=== PATIENT | female | born 1975 | race Caucasian/White ===

== ENCOUNTER 2016-05-26 14:40 | Emergency (ER) | payer OTHER ==
--- NOTE | 2016-05-27 02:34 | ED ORDER SUMMARY ---
..... Patient: KACIE MIJARES OrderSheet [facility] VisitID: [id number] [place] [address] 41y, F Registration Date/Time: 05/26/2016 ORDER SHEET Weight: 47.6 kg (stated) Allergies: None GENERAL ORDERS: UA-Culture if indicated Urgent (15:04 05/26/2016 JBoardley R.N. per protocol) (15:06 KHoerner) Urine Drug Screen Urgent (15:04 05/26/2016 JBoardley R.N. per protocol) (15:06 KHoerner) Urine Urgent (15:04 05/26/2016 JBoardley R.N. per protocol) (15:06 KHoerner) CBC w Diff Urgent (15:13 05/26/2016 RMarsden R.N. per protocol) (Ack 15:14 RMarsden R.N.) (Ack 15:17 KHoerner) (15:23 JBoardley R.N.) CMP Urgent (15:13 05/26/2016 RMarsden R.N. per protocol) (Ack 15:14 RMarsden R.N.) (Ack 15:17 KHoerner) (15:23 JBoardley R.N.) Amylase Urgent (15:13 05/26/2016 RMarsden R.N. per protocol) (Ack 15:14 RMarsden R.N.) (Ack 15:17 KHoerner) (15:23 JBoardley R.N.) Lipase Urgent (15:13 05/26/2016 RMarsden R.N. per protocol) (Ack 15:14 RMarsden R.N.) (Ack 15:17 KHoerner) (15:23 JBoardley R.N.) MEDICATION ORDERS: IV FLUIDS: IV NS with Normal Saline 1 Liter: initial bolus none -, then 1000 mL/hr for X1 (NOW); Routine (15:11 05/26/2016 RMarsden R.N. per protocol) (15:15 RMarsden R.N.) ORDER SHEET NOTES: Reason for Study: Abdominal Pain [Electronically signed by Kai Torres R.N. (16:05/26/2016)] [Electronically signed by Sal Blood MD (17:36 05/26/2016)] [Electronically locked/signed by Kai Torres R.N. (16:05/26/2016)]
--- NOTE | 2016-05-27 02:34 | ED NURSING NOTES ---
Clinical Report - Nurses [facility] [address] [place] [address] 05/26/2016 14:42 Patient: KACIE MIJARES TRIAGE Triage time 14:52. Acuity: LEVEL 3. Chief Complaint: ABDOMINAL PAIN. 15:02 05/26/16. Alert. No acute distress. SEPSIS SCREEN: Sepsis Screen. Negative (no infection suspected/documented). ZAINA COMA SCORE: [place] Coma Scale: 15- eyes open spontaneously (4); best verbal response- oriented x 4 (5); best motor response- obeys commands (6). --15:02 Joan Irving R.N. 14:51 05/26/16. BP: 119/77. HR: 112. RR: 16. O2 saturation: 98%. Temp: 98.5 F. --15:02 Joan Irving R.N. Weight: 47.6 kg stated. Height/Length: 63 inches Per Patient. BMI: 18.6. --15:02 Joan Irving R.N. Medications None. --14:55 Joan Irving R.N. Allergies None. --14:55 Joan Irving R.N. History Arrived by private vehicle. Historian: patient. Primary physician (Dr. Riley). Primary care physician not notified of patient's arrival. Onset. (pt states pain during her menstrual period has worsened over the past year and has been especially bad this month.). ( pt states "this feels like endometriosis".). She has had nausea, vomiting and diarrhea. Treatment MEDICAL DIRECTOR OF HOSPICE: Took ibuprofen. (heating pad). PAST MEDICAL HX: Immunizations: up-to-date. Last normal menstrual period- current. Denies current . SOCIAL HX: Light tobacco smoker (cigarette)- less than 1/2 a pack per day. History of drug use: heroin, methamphetamines. Recently used drugs today. No alcohol use. FALL RISK ASSESSMENT: Fall risk assessment completed. No fall risk identified. NUTRITIONAL RISK ASSESSMENT: The nutritional risk assessment revealed no deficiencies. FUNCTIONAL ASSESSMENT: Functional assessment: no impairments noted. LEARNING NEEDS ASSESSMENT: The learning needs assessment revealed no barriers. SKIN INTEGRITY ASSESSMENT: Skin integrity risk assessment completed. No skin integrity risk identified. --15:02 Joan Irving R.N. PROBLEMS: Endometriosis. Cellulitis. --14:55 Joan Irving R.N. ADDITIONAL SURGERIES: . Laparoscopy. --14:55 Joan Irving R.N. Interventions ID band on patient. To treatment room. --15: Joan Irving R.N. PHYSICAL ASSESSMENT 15:05/26/16. Ambulatory to room. GENERAL / NEURO / PSYCH: Alert. Oriented X 4. Appears in no acute distress. HEENT: Mucous membranes are pink. RESPIRATORY: Respirations not labored. Breath sounds within normal limits. CVS: Capillary refill less than 2 seconds. GI / : Abdomen soft and nontender. Bowel sounds within normal limits. SKIN: Skin is warm and dry. --15:05 Joan Irving R.N. NURSING PROGRESS NOTES 15:05/26/2016 Site #1 started via IV in the right forearm with an 22g angiocath; one attempt. Blood drawn: rainbow set. Labeled in the presence of the patient and sent to the lab. Saline lock flushed with 5 mL saline. --15:15 Joan Irving R.N. 15:05/26/2016 Started bag #1 1000 mL IV Fluids IV NS (Saline); bolus of 1000 mL over 1 hour(s) via site #1. Allergies verified and confirmed 5 rights. IV patency established. IV site checked: no pain, redness, or swelling. IV flushed thoroughly pre- and post-medication administration. --15:15 Joan Irving R.N. 15:05/26/16. The plan of care for this patient has been created. Patient gowned. Head of bed elevated. Reassurance given. --15:23 Kai Torres R.N. 15:05/26/16. Two patient identifiers checked. Call light placed in reach. Side rails up x 2. Bed placed in lowest position. Brakes of bed on. Brakes of chair on. --15:23 Kai Torres R.N. 15:24 05/26/16. Patient ready for evaluation- chart flagged and notification provided. --15:24 Kai Torres R.N. 15:57 05/26/16. BP: 111/69. HR: 114. RR: 14. O2 saturation: 100%. Temp: deferred. Pain level now: 0/10. --15:59 Joan Irving R.N. 15:59 05/26/16. --15:59 Joan Irving R.N. 16:21 05/26/2016 IV Fluids IV NS Discontinued: bag #1 infused upon discharge. Total amount infused: 1000 mL. IV patency established. IV site checked: no pain, redness, or swelling. IV flushed thoroughly. --16:21 Kai Torres R.N. DISPOSITION / DISCHARGE 16:20 05/26/2016 Site #1 removed upon discharge. Catheter intact. --16:20 Kai Torres R.N. 16:21 05/26/16. Condition at departure: improved. The goals identified in the patient's plan of care were met. No learning barriers present. Discharge instructions provided and reviewed with the patient. Reviewed warnings. Reviewed medication(s). Treatments reviewed. Patient verbalized understanding. Written instructions provided in Romansh. The patient was discharged by the physician. She was discharged home and accompanied by manager clinical pharmacy. She left the Emergency Department ambulatory and via private vehicle. Laser Print Operator driving. FALL RISK ASSESSMENT: Fall risk assessment completed. No fall risk identified. --16:21 Kai Torres R.N. 16:20 05/26/16. BP: 105/63. HR: 89. RR: 14. O2 saturation: 99% on room air. Temp: 98.1 F (oral). --16:21 Kai Torres R.N. 16:21 05/26/16. Departure time: 16:21. --16:21 Kai Torres R.N. Locked/Released at 05/26/2016 16:23 by Kai Torres R.N.
--- NOTE | 2016-05-27 02:34 | ED CLINICAL REPORT ---
Clinical Report - Physicians/Mid Levels [facility] [address] [place] [address] 05/26/2016 14:42 Patient: KACIE MIJARES Time Seen: 14:49 May 26 2016. Arrived- By private vehicle. Historian- patient. CPT: ER phys charges level 3 (#043074). HISTORY OF PRESENT ILLNESS Chief Complaint: ABDOMINAL PAIN. It is described as "pain" and it is described as located in the right pelvis and left pelvis and in the pelvic area. This started about 3 days CARDIAC NURSE and is still present but is improving. (almost gone). At its maximum, severity described as severe. When seen in the E.D., it was almost gone. Modifying factors- worsened by movement. Relieved by rest. No nausea, loss of appetite, vomiting or diarrhea. Similar symptoms previously: Several times, as bad. Seen in office. Diagnosis: (Endometriosis). Recent medical care: Not recently seen/assessed. REVIEW OF SYSTEMS No constipation, black stools, hematemesis, difficulty with urination or pain with urination. No urinary frequency, fever, sore throat, chest pain or difficulty breathing. No joint pain, skin rash, chills or back pain. Denies current . All systems otherwise negative, except as recorded above. PAST HISTORY Endometriosis. Cellulitis. - ADDITIONAL SURGERIES: . Laparoscopy. Medications: None. Allergies: None. SOCIAL HISTORY Heavy tobacco smoker (cigarette)- less than 1 pack per day. History of drug use: heroin, methamphetamines. No alcohol use. ADDITIONAL NOTES The nursing notes have been reviewed. PHYSICAL EXAM Vital Signs: 05/26/2016 14:52 BP: 119/77. HR: 112. RR: 16. O2 saturation: 98%. Temp: 98.5 F. Appearance: Alert. No acute distress. Eyes: Eyes normal inspection. ENT: Pharynx normal. Neck: Normal inspection. CVS: Normal heart rate and rhythm. Respiratory: No respiratory distress. Abdomen: Soft and nontender. Bowel sounds normal. Back: Normal inspection. No CVA tenderness. Skin: Skin warm. Normal skin color. No rash. Neuro: Oriented X 3. No motor deficit. No sensory deficit. Reflexes normal. PROGRESS AND PROCEDURES Course of Care: Pt episode of pain is almost resolved as it usually does on day 3 of menses. She needs work note to go back to work and is primarily why she is here. Patient/family counseled. Disposition: Discharged. Condition: stable. CLINICAL IMPRESSION Recurrent endometriosis with severe pelvic pain. INSTRUCTIONS Return to school tomorrow, in one day. Do not go to school for three days until better (Tuesday thru Tuesday.). Warnings: Further evaluation is necessary. Follow-up: Follow up with a plastics worker in three weeks. Call for the next available appointment. Understanding of the discharge instructions verbalized by patient. (Electronically signed by Sal Blood MD 05/26/2016 17:36)
--- NOTE | 2016-05-27 02:34 | ED NURSING NOTES ---
Clinical Report - Nurses [facility] [address] [place] [address] 05/26/2016 14:42 Patient: KACIE MIJARES TRIAGE Triage time 14:52. Acuity: LEVEL 3. Chief Complaint: ABDOMINAL PAIN. 15:02 05/26/16. Alert. No acute distress. SEPSIS SCREEN: Sepsis Screen. Negative (no infection suspected/documented). ZAINA COMA SCORE: [place] Coma Scale: 15- eyes open spontaneously (4); best verbal response- oriented x 4 (5); best motor response- obeys commands (6). --15:02 Joan Irving R.N. 14:51 05/26/16. BP: 119/77. HR: 112. RR: 16. O2 saturation: 98%. Temp: 98.5 F. --15:02 Joan Irving R.N. Weight: 47.6 kg stated. Height/Length: 63 inches Per Patient. BMI: 18.6. --15:02 Joan Irving R.N. Medications None. --14:55 Joan Irving R.N. Allergies None. --14:55 Joan Irving R.N. History Arrived by private vehicle. Historian: patient. Primary physician (Dr. Riley). Primary care physician not notified of patient's arrival. Onset. (pt states pain during her menstrual period has worsened over the past year and has been especially bad this month.). ( pt states "this feels like endometriosis".). She has had nausea, vomiting and diarrhea. 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 (heating pad). PAST MEDICAL HX: Immunizations: up-to-date. Last normal menstrual period- current. Denies current . SOCIAL HX: Light tobacco smoker (cigarette)- less than 1/2 a pack per day. History of drug use: heroin, methamphetamines. Recently used drugs today. No alcohol use. FALL RISK ASSESSMENT: Fall risk assessment completed. No fall risk identified. NUTRITIONAL RISK ASSESSMENT: The nutritional risk assessment revealed no deficiencies. FUNCTIONAL ASSESSMENT: Functional assessment: no impairments noted. LEARNING NEEDS ASSESSMENT: The learning needs assessment revealed no barriers. SKIN INTEGRITY ASSESSMENT: Skin integrity risk assessment completed. No skin integrity risk identified. --15:02 Joan Irving R.N. PROBLEMS: Endometriosis. Cellulitis. --14:55 Joan Irving R.N. ADDITIONAL SURGERIES: . Laparoscopy. --14:55 Joan Irving R.N. Interventions ID band on patient. To treatment room. --15: Joan Irving R.N. PHYSICAL ASSESSMENT 15:05/26/16. Ambulatory to room. GENERAL / NEURO / PSYCH: Alert. Oriented X 4. Appears in no acute distress. HEENT: Mucous membranes are pink. RESPIRATORY: Respirations not labored. Breath sounds within normal limits. CVS: Capillary refill less than 2 seconds. GI / : Abdomen soft and nontender. Bowel sounds within normal limits. SKIN: Skin is warm and dry. --15:05 Joan Irving R.N. NURSING PROGRESS NOTES 15:05/26/2016 Site #1 started via IV in the right forearm with an 22g angiocath; one attempt. Blood drawn: rainbow set. Labeled in the presence of the patient and sent to the lab. Saline lock flushed with 5 mL saline. --15:15 Joan Irving R.N. 15:05/26/2016 Started bag #1 1000 mL IV Fluids IV NS (Saline); bolus of 1000 mL over 1 hour(s) via site #1. Allergies verified and confirmed 5 rights. IV patency established. IV site checked: no pain, redness, or swelling. IV flushed thoroughly pre- and post-medication administration. --15:15 Joan Irving R.N. 15:05/26/16. The plan of care for this patient has been created. Patient gowned. Head of bed elevated. Reassurance given. --15:23 Kai Torres R.N. 15:05/26/16. Two patient identifiers checked. Call light placed in reach. Side rails up x 2. Bed placed in lowest position. Brakes of bed on. Brakes of chair on. --15:23 Kai Torres R.N. 15:24 05/26/16. Patient ready for evaluation- chart flagged and notification provided. --15:24 Kai Torres R.N. 15:57 05/26/16. BP: 111/69. HR: 114. RR: 14. O2 saturation: 100%. Temp: deferred. Pain level now: 0/10. --15:59 Joan Irving R.N. 15:59 05/26/16. --15:59 Joan Irving R.N. 16:21 05/26/2016 IV Fluids IV NS Discontinued: bag #1 infused upon discharge. Total amount infused: 1000 mL. IV patency established. IV site checked: no pain, redness, or swelling. IV flushed thoroughly. --16:21 Kai Torres R.N. DISPOSITION / DISCHARGE 16:20 05/26/2016 Site #1 removed upon discharge. Catheter intact. --16:20 Kai Torres R.N. 16:21 05/26/16. Condition at departure: improved. The goals identified in the patient's plan of care were met. No learning barriers present. Discharge instructions provided and reviewed with the patient. Reviewed warnings. Reviewed medication(s). Treatments reviewed. Patient verbalized understanding. Written instructions provided in Hebrew. The patient was discharged by the physician. She was discharged home and accompanied by principal librarian. She left the Emergency Department ambulatory and via private vehicle. Marketing Support Specialist driving. FALL RISK ASSESSMENT: Fall risk assessment completed. No fall risk identified. --16:21 Kai Torres R.N. 16:20 05/26/16. BP: 105/63. HR: 89. RR: 14. O2 saturation: 99% on room air. Temp: 98.1 F (oral). --16:21 Kai Torres R.N. 16:21 05/26/16. Departure time: 16:21. --16:21 Kai Torres R.N. Locked/Released at 05/26/2016 16:23 by Kai Torres R.N.
--- NOTE | 2016-05-27 02:34 | ED CLINICAL REPORT ---
Clinical Report - Physicians/Mid Levels [facility] [address] [place] [address] 05/26/2016 14:42 Patient: KACIE MIJARES Time Seen: 14:49 May 26 2016. Arrived- By private vehicle. Historian- patient. CPT: ER phys charges level 3 (#929586). HISTORY OF PRESENT ILLNESS Chief Complaint: ABDOMINAL PAIN. It is described as "pain" and it is described as located in the right pelvis and left pelvis and in the pelvic area. 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 (almost gone). At its maximum, severity described as severe. When seen in the E.D., it was almost gone. Modifying factors- worsened by movement. Relieved by rest. No nausea, loss of appetite, vomiting or diarrhea. Similar symptoms previously: Several times, as bad. Seen in office. Diagnosis: (Endometriosis). Recent medical care: Not recently seen/assessed. REVIEW OF SYSTEMS No constipation, black stools, hematemesis, difficulty with urination or pain with urination. No urinary frequency, fever, sore throat, chest pain or difficulty breathing. No joint pain, skin rash, chills or back pain. Denies current . All systems otherwise negative, except as recorded above. PAST HISTORY Endometriosis. Cellulitis. - ADDITIONAL SURGERIES: . Laparoscopy. Medications: None. Allergies: None. SOCIAL HISTORY Heavy tobacco smoker (cigarette)- less than 1 pack per day. History of drug use: heroin, methamphetamines. No alcohol use. ADDITIONAL NOTES The nursing notes have been reviewed. PHYSICAL EXAM Vital Signs: 05/26/2016 14:52 BP: 119/77. HR: 112. RR: 16. O2 saturation: 98%. Temp: 98.5 F. Appearance: Alert. No acute distress. Eyes: Eyes normal inspection. ENT: Pharynx normal. Neck: Normal inspection. CVS: Normal heart rate and rhythm. Respiratory: No respiratory distress. Abdomen: Soft and nontender. Bowel sounds normal. Back: Normal inspection. No CVA tenderness. Skin: Skin warm. Normal skin color. No rash. Neuro: Oriented X 3. No motor deficit. No sensory deficit. Reflexes normal. PROGRESS AND PROCEDURES Course of Care: Pt episode of pain is almost resolved as it usually does on day 3 of menses. She needs work note to go back to work and is primarily why she is here. Patient/family counseled. Disposition: Discharged. Condition: stable. CLINICAL IMPRESSION Recurrent endometriosis with severe pelvic pain. INSTRUCTIONS Return to school tomorrow, in one day. Do not go to school for three days until better (Tuesday thru Tuesday.). Warnings: Further evaluation is necessary. Follow-up: Follow up with a pipeline inspector in three weeks. Call for the next available appointment. Understanding of the discharge instructions verbalized by patient. (Electronically signed by Sal Blood MD 05/26/2016 17:36)
--- NOTE | 2016-05-27 02:34 | ED ORDER SUMMARY ---
..... Patient: KACIE MIJARES OrderSheet [facility] VisitID: [id number] [place] [address] 41y, F Registration Date/Time: 05/26/2016 ORDER SHEET Weight: 47.6 kg (stated) Allergies: None GENERAL ORDERS: UA-Culture if indicated Urgent (15:04 05/26/2016 JBoardley R.N. per protocol) (15:06 KHoerner) Urine Drug Screen Urgent (15:04 05/26/2016 JBoardley R.N. per protocol) (15:06 KHoerner) Urine Urgent (15:04 05/26/2016 JBoardley R.N. per protocol) (15:06 KHoerner) CBC w Diff Urgent (15:13 05/26/2016 RMarsden R.N. per protocol) (Ack 15:14 RMarsden R.N.) (Ack 15:17 KHoerner) (15:23 JBoardley R.N.) CMP Urgent (15:13 05/26/2016 RMarsden R.N. per protocol) (Ack 15:14 RMarsden R.N.) (Ack 15:17 KHoerner) (15:23 JBoardley R.N.) Amylase Urgent (15:13 05/26/2016 RMarsden R.N. per protocol) (Ack 15:14 RMarsden R.N.) (Ack 15:17 KHoerner) (15:23 JBoardley R.N.) Lipase Urgent (15:13 05/26/2016 RMarsden R.N. per protocol) (Ack 15:14 RMarsden R.N.) (Ack 15:17 KHoerner) (15:23 JBoardley R.N.) MEDICATION ORDERS: IV FLUIDS: IV NS with Normal Saline 1 Liter: initial bolus none -, then 1000 mL/hr for X1 (NOW); Routine (15:11 05/26/2016 RMarsden R.N. per protocol) (15:15 RMarsden R.N.) ORDER SHEET NOTES: Reason for Study: Abdominal Pain [Electronically signed by Kai Torres R.N. (16:05/26/2016)] [Electronically signed by Sal Blood MD (17:36 05/26/2016)] [Electronically locked/signed by Kai Torres R.N. (16:05/26/2016)]
--- NOTE | 2016-05-27 02:35 | ED MED RECONCILIATION SUMMARY ---
Patient: KACIE MIJARES Medication Reconciliation Report [facility] VisitID: [id number] [address] [place] [address] 41y, F Registration Date/Time: 05/26/2016 Weight: 47.6 kg Height/Length: 63 in. BMI: 18.6 ALLERGIES: None The patient's Home Medications are listed below: NONE. The source(s) of the original Home Medication information: Not obtained. The following Medications were given to the patient in the Emergency Department: IV NS IV Fluids bolus 1000 mL over 1 hour(s), administered: 05/26/2016 3:15:00 PM The following Medications were prescribed to the patient: None.
--- NOTE | 2016-05-27 02:35 | ED MAR SUMMARY ---
..... Medication Administration Record [facility] [address] [place] [address] Patient: KACIE MIJARES Visit ID: [id number] 41y, F Weight: 47.6 kg Height/Length: 63 in BMI: 18.6 ALLERGIES: None Start 15:15 05/26/2016 Joan Irving R.N., Stop 16:21 05/26/2016 Kai Torres R.N. Medication Administered: IV NS (SALINE), Dose: IV Fluids, Bolus: 1000 mL over 1 hour(s), Dispensed: 1000 mL bag, Site: #1 right forearm. Medication Ordered: IV NS with Normal Saline 1 Liter: initial bolus none -, then 1000 mL/hr for X1 (NOW); Routine.
--- NOTE | 2016-05-27 02:35 | ED MED RECONCILIATION SUMMARY ---
Patient: KACIE MIJARES Medication Reconciliation Report [facility] VisitID: [id number] [address] [place] [address] 41y, F Registration Date/Time: 05/26/2016 Weight: 47.6 kg Height/Length: 63 in. BMI: 18.6 ALLERGIES: None The patient's Home Medications are listed below: NONE. The source(s) of the original Home Medication information: Not obtained. The following Medications were given to the patient in the Emergency Department: IV NS IV Fluids bolus 1000 mL over 1 hour(s), administered: 05/26/2016 3:15:00 PM The following Medications were prescribed to the patient: None.
--- NOTE | 2016-05-27 02:35 | ED DISCHARGE INSTRUCTIONS ---
Patient: KACIE MIJARES General Instructions [facility] VisitID: [id number] [address] [place] [address] 41y, F Registration Date/Time: 05/26/2016 Recurrent endometriosis with severe pelvic pain. INSTRUCTIONS Return to school tomorrow, in one day. Do not go to school for three days until better (Tuesday thru Tuesday.). Warnings: Further evaluation is necessary. Follow-up: Follow up with a software quality analyst in three weeks. Call for the next available appointment. Understanding of the discharge instructions verbalized by patient. Return to school tomorrow, in one day. Do not go to school for three days until better (Tuesday thru Tuesday.). (Electronically signed by Sal Blood MD 05/26/2016 17:36)
--- NOTE | 2016-05-27 02:35 | ED MAR SUMMARY ---
..... Medication Administration Record [facility] [address] [place] [address] Patient: KACIE MIJARES Visit ID: [id number] 41y, F Weight: 47.6 kg Height/Length: 63 in BMI: 18.6 ALLERGIES: None Start 15:15 05/26/2016 Joan Irving R.N., Stop 16:21 05/26/2016 Kai Torres R.N. Medication Administered: IV NS (SALINE), Dose: IV Fluids, Bolus: 1000 mL over 1 hour(s), Dispensed: 1000 mL bag, Site: #1 right forearm. Medication Ordered: IV NS with Normal Saline 1 Liter: initial bolus none -, then 1000 mL/hr for X1 (NOW); Routine.
--- NOTE | 2016-05-27 02:35 | ED DISCHARGE INSTRUCTIONS ---
Patient: KACIE MIJARES General Instructions [facility] VisitID: [id number] [address] [place] [address] 41y, F Registration Date/Time: 05/26/2016 Recurrent endometriosis with severe pelvic pain. INSTRUCTIONS Return to school tomorrow, in one day. Do not go to school for three days until better (Tuesday thru Tuesday.). Warnings: Further evaluation is necessary. Follow-up: Follow up with a transportation operations manager in three weeks. Call for the next available appointment. Understanding of the discharge instructions verbalized by patient. Return to school tomorrow, in one day. Do not go to school for three days until better (Tuesday thru Tuesday.). (Electronically signed by Sal Blood MD 05/26/2016 17:36)
== END 2016-05-26 16:21 | disposition home or self-care (01) ==
LOC: ED SRH 14:40
DX: N80.9 Endometriosis, unspecified (principal); R10.2 Pelvic and perineal pain; F17.210 Nicotine dependence, cigarettes, uncomplicated
CPT/HCPCS: 90004; 90100; 92235; 92530; 92760; 92761; 92762; 92763; 92764; 92765; 92766; 92767; 93070; 95059